=== PATIENT | male | born 1935 | race Caucasian/White ===

== ENCOUNTER 2018-09-02 09:49 | Outpatient (REF) | payer OTHER, SELFPAY ==
[2018-09-02 22:54] LABS: Iron 55 ug/dL (50-175); Total Iron Binding Capacity 274 ug/dL (250-450); Transferrin Sat 20 % (20-55)
[2018-09-02 23:07] LABS: COMMENT (LAB VIEW ONLY) 141.47 mg/dL
[2018-09-02 23:10] LABS: Anion Gap 10.6 mmol/L (3-11); BUN 30 mg/dL (7-18); CO2 24.4 mmol/L (21.0-32.0); CREATININE 1.67 mg/dL (0.70-1.30); Calcium 9.4 mg/dL (8.5-10.1); Chloride 103 mmol/L (98-107); Estimated GFR 39.68 (mL/min/1.73m2); Ferritin 173 ng/mL (8-388); Glucose 130 mg/dL (70-100); Potassium 5.6 mmol/L (3.5-5.1); Sodium 138 mmol/L (136-145)
== END 2018-09-02 10:09 ==
LOC: NCHCN 09:49
PROVIDERS: PCP Internal Medicine; Visit Provider Internal Medicine
DX: D50.0 Iron deficiency anemia secondary to blood loss (chronic) (principal); E11.9 Type 2 diabetes mellitus without complications; N18.9 Chronic kidney disease, unspecified
CPT/HCPCS: 80048; 82043; 82570; 82728; 83540; 83550

== ENCOUNTER → 2018-12-16 09:57 | Outpatient (BNVA) | payer MEDICARE, SELFPAY | PROVIDERS: PCP Internal Medicine; Referring Provider Internal Medicine; Visit Provider Nurse Practitioner Adult Health | DX: G56.01 Carpal tunnel syndrome, right upper limb (principal); R20.2 Paresthesia of skin; E11.22 Type 2 diabetes mellitus with diabetic chronic kidney disease; I12.9 Hypertensive chronic kidney disease with stage 1 through stage 4 chronic kidney disease, or unspecified chronic kidney disease; N18.9 Chronic kidney disease, unspecified | CPT/HCPCS: 95909; 99203; 99213 ==

== ENCOUNTER 2019-03-09 12:09 | Outpatient (REF) | payer MEDICARE, SELFPAY ==
[2019-03-09 22:33] LABS: Anion Gap 8.3 mmol/L (3-11); BUN 21 mg/dL (7-18); CO2 25.7 mmol/L (21.0-32.0); CREATININE 1.54 mg/dL (0.70-1.30); Calcium 8.7 mg/dL (8.5-10.1); Chloride 105 mmol/L (98-107); Estimated GFR 43.57 (mL/min/1.73m2); Glucose 166 mg/dL (70-100); Potassium 4.8 mmol/L (3.5-5.1); Sodium 139 mmol/L (136-145)
[2019-03-09 22:41] LABS: Abs Immature Grans 0.02 k/cumm (0.0-0.09); Absolute Basophil Count 0.06 k/cumm (0.0-0.2); Absolute Eosinophil Count 0.81 k/cumm (0.0-0.7); Absolute Lymphocyte Count 2.07 k/cumm (1.2-3.4); Absolute Monocyte Count 0.56 k/cumm (0.11-0.7); Absolute Neutrophil Count 4.45 k/cumm (1.2-6.7); Basophils % 0.8; Eosinophils % 10.2; HCT 37.7 % (40.0-50.0); HGB 12.1 g/dL (13.5-17.5); Immature Grans % 0.3; Mean Corp. HGB Concentration 32.1 g/dL (32.0-36.0); Mean Corpuscular Hemoglobin 27.2 pg (27.0-33.0); Mean Corpuscular Volume 84.7 fL (80-95); Mean Platelet Volume 10.9 fL (8.0-11.0); Neutrophils % 55.7; Platelet Count 192 x1000/uL (130-400); RBC 4.45 m/cumm (4.50-6.00); RBC Distribution Width 13.9 % (11.8-14.1); White Blood Cell Count 7.97 k/cumm (4.4-10.8)
== END 2019-03-09 12:29 ==
LOC: NCHCN 12:09
PROVIDERS: PCP Internal Medicine; Visit Provider Internal Medicine
DX: D50.0 Iron deficiency anemia secondary to blood loss (chronic) (principal); I10 Essential (primary) hypertension
CPT/HCPCS: 80048; 85025

== ENCOUNTER 2019-09-29 08:45 | Outpatient (REF) | payer MEDICARE, SELFPAY ==
[2019-09-29 22:29] LABS: COMMENT (LAB VIEW ONLY) 141.66 mg/dL; Microalb ug/mg Crea 35.5 ug/mg Cr
== END 2019-09-29 09:05 ==
LOC: NCHCN 08:45
PROVIDERS: PCP Internal Medicine; Visit Provider Internal Medicine
DX: E11.9 Type 2 diabetes mellitus without complications (principal)
CPT/HCPCS: 82043; 82570

== ENCOUNTER 2020-01-28 09:02 | Outpatient (REF) | payer MEDICARE, SELFPAY ==
[2020-01-28 20:09] LABS: HGB 13.6 g/dL (13.5-17.5); Mean Corp. HGB Concentration 33.2 g/dL (32.0-36.0); Mean Corpuscular Hemoglobin 27.6 pg (27.0-33.0); Mean Corpuscular Volume 83.3 fL (80-95); Mean Platelet Volume 11.1 fL (8.0-11.0); Platelet Count 208 x1000/uL (130-400); RBC 4.92 m/cumm (4.50-6.00); RBC Distribution Width 13.4 % (11.8-14.1); White Blood Cell Count 6.57 k/cumm (4.4-10.8)
[2020-01-28 20:29] LABS: ALT 27 U/L (16-63); AST 14 U/L (15-37); Albumin 4.3 g/dL (3.4-5.0); Alkaline Phosphatase 89 U/L (46-116); BUN 25 mg/dL (7-18); Bilirubin, Total 0.5 mg/dL (0.2-1.0); CREATININE 1.54 mg/dL (0.70-1.30); Calculated LDL 71 mg/dL (<100); Chloride 103 mmol/L (98-107); Cholesterol 149 mg/dL (<200); Estimated GFR 43.47 (mL/min/1.73m2); Glucose 132 mg/dL (74-106); HDL Cholesterol 43 mg/dL (40-60); Potassium 4.7 mmol/L (3.5-5.1); Sodium 141 mmol/L (136-145); Total Protein 7.6 g/dL (6.4-8.2); Triglyceride 177 mg/dL (<150)
== END 2020-01-28 09:22 ==
LOC: NCHCN 09:02
PROVIDERS: PCP Internal Medicine; Visit Provider Nurse Practitioner Family
DX: I10 Essential (primary) hypertension (principal); E11.9 Type 2 diabetes mellitus without complications; N18.9 Chronic kidney disease, unspecified
CPT/HCPCS: 80053; 80061; 85027

== ENCOUNTER 2020-07-03 19:44 | Outpatient (REF) | payer MEDICARE, SELFPAY ==
[2020-07-03 21:18] LABS: ALT 26 U/L (16-63); AST 15 U/L (15-37); Albumin 4.1 g/dL (3.4-5.0); Alkaline Phosphatase 78 U/L (46-116); BUN 26 mg/dL (7-18); Bilirubin, Direct 0.11 mg/dL (0.00-0.20); Bilirubin, Total 0.4 mg/dL (0.2-1.0); CREATININE 1.64 mg/dL (0.70-1.30); Estimated GFR 40.32 (mL/min/1.73m2); Total Protein 7.2 g/dL (6.4-8.2)
== END 2020-07-03 20:04 ==
LOC: NCHCN 19:44
PROVIDERS: PCP Internal Medicine; Visit Provider Internal Medicine
DX: E11.9 Type 2 diabetes mellitus without complications (principal); I10 Essential (primary) hypertension; N18.9 Chronic kidney disease, unspecified
CPT/HCPCS: 80076; 84520; 82565; 83036

== ENCOUNTER 2021-02-05 16:54 | Outpatient (REF) | payer MEDICARE, SELFPAY | END 2021-02-05 16:55 | disposition home or self-care (01) | LOC: NCHCN 16:54 | PROVIDERS: PCP Internal Medicine; Visit Provider Nurse Practitioner Family | DX: R30.0 Dysuria (principal) | CPT/HCPCS: 87077; 87086; 87186 ==

== ENCOUNTER 2021-04-12 10:39 | Outpatient (REF) | payer MEDICARE, SELFPAY ==
[2021-04-12 13:56] LABS: Anion Gap 6.2 mmol/L (3-11); BUN 24 mg/dL (7-18); CO2 27.8 mmol/L (21.0-32.0); CREATININE 1.6 mg/dL (0.70-1.30); Calcium 8.7 mg/dL (8.5-10.1); Chloride 107 mmol/L (98-107); Estimated GFR 41.49 (mL/min/1.73m2); Glucose 156 mg/dL (74-106); Potassium 5.8 mmol/L (3.5-5.1); Sodium 141 mmol/L (136-145)
[2021-04-12 14:39] LABS: COMMENT (LAB VIEW ONLY) 117.09 mg/dL
== END 2021-04-12 10:40 | disposition home or self-care (01) ==
LOC: NCHCN 10:39
PROVIDERS: PCP Internal Medicine; Visit Provider Internal Medicine
DX: E11.9 Type 2 diabetes mellitus without complications (principal); I10 Essential (primary) hypertension; N18.9 Chronic kidney disease, unspecified
CPT/HCPCS: 80048; 82043; 82570; 83036

== ENCOUNTER 2021-08-13 13:47 | Outpatient (REF) | payer MEDICARE, SELFPAY ==
[2021-08-13 14:51] LABS: Anion Gap 4.9 mmol/L (3-11); BUN 25 mg/dL (7-18); CO2 29.1 mmol/L (21.0-32.0); CREATININE 1.6 mg/dL (0.70-1.30); Chloride 107 mmol/L (98-107); Estimated GFR 41.39 (mL/min/1.73m2); Glucose 123 mg/dL (74-106); Potassium 5.4 mmol/L (3.5-5.1); Sodium 141 mmol/L (136-145)
[2021-08-13 16:46] LABS: Vitamin D 25 Total 38.2 ng/mL (30-100)
[2021-08-14 10:32] LABS: Parathyroid Hormone,Intact 114 pg/mL (19-88)
== END 2021-08-13 13:48 | disposition home or self-care (01) ==
LOC: NCHCN 13:47
PROVIDERS: PCP Internal Medicine; Visit Provider Internal Medicine
DX: N18.9 Chronic kidney disease, unspecified (principal)
CPT/HCPCS: 80048; 82306; 83970

== ENCOUNTER 2021-12-04 09:51 | Outpatient (REF) | payer MEDICARE, SELFPAY ==
[2021-12-04 16:07] LABS: Hemoglobin A1C 6.7 % (<5.7)
[2021-12-04 16:14] LABS: BUN 28 mg/dL (7-18); CREATININE 1.8 mg/dL (0.70-1.30); Calcium 8.8 mg/dL (8.5-10.1); Chloride 105 mmol/L (98-107); Estimated GFR 36.13 (mL/min/1.73m2); Glucose 121 mg/dL (74-106); Potassium 4.9 mmol/L (3.5-5.1); Sodium 141 mmol/L (136-145)
== END 2021-12-04 09:52 | disposition home or self-care (01) ==
LOC: NCHCN 09:51
PROVIDERS: PCP Internal Medicine; Visit Provider Internal Medicine
DX: I10 Essential (primary) hypertension (principal); N18.9 Chronic kidney disease, unspecified; E11.9 Type 2 diabetes mellitus without complications
CPT/HCPCS: 80048; 83036

== ENCOUNTER 2022-03-15 18:59 | Outpatient (REF) | payer MEDICARE, SELFPAY ==
[2022-03-15 15:17] LABS: COMMENT (LAB VIEW ONLY) 102.28 mg/dL; Microalb ug/mg Crea 96.6 ug/mg Cr
== END 2022-03-15 19:00 | disposition home or self-care (01) ==
LOC: NCHCN 18:59
PROVIDERS: PCP Internal Medicine; Visit Provider Internal Medicine
DX: E11.9 Type 2 diabetes mellitus without complications (principal)
CPT/HCPCS: 82043; 82570

== ENCOUNTER 2022-05-02 15:51 | Outpatient (REF) | payer MEDICARE, SELFPAY ==
[2022-05-02 16:11] LABS: HCT 41.1 % (40.0-50.0); HGB 13.5 g/dL (13.5-17.5); MCH 27.8 pg (27.0-33.0); MCHC 32.8 % (32.0-36.0); MCV 85 fL (80-95); MPV 11.7 fL (8.0-11.0); Platelet Count 206 10^3/uL (130-400); RBC 4.86 10^6/uL (4.36-5.78); RDW 13.2 % (11.8-14.1); WBC 7.09 10^3/uL (4.4-10.8)
[2022-05-02 17:32] LABS: Anion Gap 8.3 mmol/L (3-11); BUN 30 mg/dL (7-18); CO2 26.7 mmol/L (21.0-32.0); CREATININE 1.7 mg/dL (0.70-1.30); Calcium 8.8 mg/dL (8.5-10.1); Chloride 102 mmol/L (98-107); Estimated GFR 38.59 (mL/min/1.73m2); Glucose 113 mg/dL (74-106); Potassium 5.3 mmol/L (3.5-5.1); Sodium 137 mmol/L (136-145)
[2022-05-06 10:52] LABS: Parathyroid Hormone,Intact 78 pg/mL (19-88)
== END 2022-05-02 15:52 | disposition home or self-care (01) ==
LOC: NCHCN 15:51
PROVIDERS: PCP Internal Medicine; Visit Provider Internal Medicine
DX: I10 Essential (primary) hypertension (principal); N18.9 Chronic kidney disease, unspecified; I48.0 Paroxysmal atrial fibrillation
CPT/HCPCS: 80048; 85027; 83970

== ENCOUNTER 2022-07-25 16:49 | Outpatient (REF) | payer MEDICARE, SELFPAY ==
[2022-07-25 21:42] LABS: Potassium 5.1 mmol/L (3.5-5.1)
== END 2022-07-25 16:50 | disposition home or self-care (01) ==
LOC: NCHCN 16:49
PROVIDERS: PCP Internal Medicine; Visit Provider Internal Medicine
DX: E87.5 Hyperkalemia (principal)
CPT/HCPCS: 84132

== ENCOUNTER 2023-02-27 12:25 | Outpatient (REF) | payer MEDICARE, SELFPAY ==
[2023-02-27 14:38] LABS: HCT 41.1 % (40.0-50.0); HGB 13.2 g/dL (13.5-17.5); MCH 27.1 pg (27.0-33.0); MCHC 32.1 % (32.0-36.0); MCV 84 fL (80-95); MPV 10.9 fL (8.0-11.0); Platelet Count 207 10^3/uL (130-400); RBC 4.87 10^6/uL (4.36-5.78); RDW 13.2 % (11.8-14.1); RDW-SD 41.1 fL; WBC 7.67 10^3/uL (4.4-10.8)
[2023-02-27 16:44] LABS: Anion Gap 8.8 mmol/L (3-11); BUN 27 mg/dL (7-18); CO2 26.2 mmol/L (21.0-32.0); CREATININE 1.9 mg/dL (0.70-1.30); Calcium 8.8 mg/dL (8.5-10.1); Chloride 105 mmol/L (98-107); Estimated GFR 34.14 (mL/min/1.73m2); Glucose 170 mg/dL (74-106); Potassium 5.2 mmol/L (3.5-5.1); Sodium 140 mmol/L (136-145)
[2023-02-27 16:50] LABS: COMMENT (LAB VIEW ONLY) 118.69 mg/dL
[2023-02-27 16:52] LABS: Microalb ug/mg Crea 158.7 ug/mg Cr
== END 2023-02-27 12:26 | disposition home or self-care (01) ==
LOC: NCHCN 12:25
PROVIDERS: PCP Internal Medicine; Visit Provider Internal Medicine
DX: N18.9 Chronic kidney disease, unspecified (principal); E11.9 Type 2 diabetes mellitus without complications
CPT/HCPCS: 80048; 85027; 82043; 82570

== ENCOUNTER 2023-08-25 20:51 | Outpatient (REF) | payer MEDICARE, SELFPAY ==
[2023-08-25 16:25] LABS: Anion Gap 10.5 mmol/L (3-11); BUN 26 mg/dL (7-18); CO2 24.5 mmol/L (21.0-32.0); CREATININE 1.7 mg/dL (0.70-1.30); Calcium 9.4 mg/dL (8.5-10.1); Chloride 104 mmol/L (98-107); Estimated GFR 38.78 (mL/min/1.73m2); Glucose 206 mg/dL (74-106); Potassium 4.3 mmol/L (3.5-5.1); Sodium 139 mmol/L (136-145)
[2023-08-25 17:18] LABS: Vitamin D 25 Total 47.9 ng/mL (30-100)
[2023-08-25 23:30] LABS: Parathyroid Hormone,Intact 101 pg/mL (19-88)
== END 2023-08-25 20:52 | disposition home or self-care (01) ==
LOC: NCHCN 20:51
PROVIDERS: PCP Internal Medicine; Visit Provider Internal Medicine
DX: E11.9 Type 2 diabetes mellitus without complications (principal); I10 Essential (primary) hypertension; I48.0 Paroxysmal atrial fibrillation; N18.9 Chronic kidney disease, unspecified
CPT/HCPCS: 80048; 82306; 83036; 83970

== ENCOUNTER 2023-12-05 12:22 | Outpatient (REF) | payer MEDICARE, SELFPAY ==
[2023-12-05 15:03] LABS: HCT 38.3 % (40.0-50.0); HGB 12.4 g/dL (13.5-17.5); MCH 27.3 pg (27.0-33.0); MCHC 32.4 % (32.0-36.0); MCV 84 fL (80-95); MPV 11.2 fL (8.0-11.0); Platelet Count 205 10^3/uL (130-400); RBC 4.55 10^6/uL (4.36-5.78); RDW 13.2 % (11.8-14.1); RDW-SD 40.8 fL; WBC 7.37 10^3/uL (4.4-10.8)
[2023-12-05 15:13] LABS: BUN 29 mg/dL (7-18); CREATININE 1.7 mg/dL (0.70-1.30); Calcium 9.1 mg/dL (8.5-10.1); Chloride 105 mmol/L (98-107); Estimated GFR 38.78 (mL/min/1.73m2); Glucose 218 mg/dL (74-106); Potassium 4.6 mmol/L (3.5-5.1); Sodium 142 mmol/L (136-145)
[2023-12-05 15:25] LABS: Hemoglobin A1C 6.8 % (<5.7)
== END 2023-12-05 12:23 | disposition home or self-care (01) ==
LOC: NCHCN 12:22
PROVIDERS: PCP Internal Medicine; Visit Provider Internal Medicine
DX: N18.9 Chronic kidney disease, unspecified (principal)
CPT/HCPCS: 80048; 85027; 83036

== ENCOUNTER 2024-02-20 14:54 | Outpatient (REF) | payer MEDICARE, SELFPAY ==
[2024-02-20 22:12] LABS: COMMENT (LAB VIEW ONLY) 196.71 mg/dL
== END 2024-02-20 14:55 | disposition home or self-care (01) ==
LOC: NCHCN 14:54
PROVIDERS: PCP Internal Medicine; Visit Provider Internal Medicine
DX: E11.9 Type 2 diabetes mellitus without complications (principal)
CPT/HCPCS: 82043; 82570

== ENCOUNTER 2024-06-16 20:05 | Outpatient (REF) | payer MEDICARE, SELFPAY ==
[2024-06-16 21:31] LABS: HCT 40.9 % (40.0-50.0); HGB 12.7 g/dL (13.5-17.5); MCH 27.6 pg (27.0-33.0); MCHC 31.1 % (32.0-36.0); MCV 89 fL (80-95); MPV 11.5 fL (8.0-11.0); Platelet Count 190 10^3/uL (130-400); RDW 13.5 % (11.8-14.1); RDW-SD 43.8 fL; WBC 7.67 10^3/uL (4.4-10.8)
[2024-06-16 22:43] LABS: BUN 31 mg/dL (7-18); CREATININE 1.8 mg/dL (0.70-1.30); Calcium 9.2 mg/dL (8.5-10.1); Chloride 104 mmol/L (98-107); Estimated GFR 35.98 (mL/min/1.73m2); Glucose 201 mg/dL (74-106); Potassium 4.8 mmol/L (3.5-5.1); Sodium 139 mmol/L (136-145)
[2024-06-17 11:54] LABS: Hemoglobin A1C 6.6 % (<5.7)
== END 2024-06-16 20:06 | disposition home or self-care (01) ==
LOC: NCHCN 20:05
PROVIDERS: PCP Internal Medicine; Visit Provider Internal Medicine
DX: I10 Essential (primary) hypertension (principal); E11.9 Type 2 diabetes mellitus without complications; K27.9 Peptic ulcer, site unspecified, unspecified as acute or chronic, without hemorrhage or perforation
CPT/HCPCS: 80048; 85027; 83036

== ENCOUNTER 2024-09-17 08:40 | Outpatient (REF) | payer MEDICARE, SELFPAY ==
[2024-09-17 15:21] LABS: Hemoglobin A1C 6.5 % (<5.7)
[2024-09-17 16:57] LABS: ALT 27 U/L (16-63); AST 8 U/L (15-37); Alkaline Phosphatase 84 U/L (46-116); Anion Gap 12.2 mmol/L (3-11); BUN 36 mg/dL (7-18); Bilirubin, Total 0.41 mg/dL (0.2-1.0); CO2 23.8 mmol/L (21.0-32.0); CREATININE 2.2 mg/dL (0.70-1.30); Calcium 9.2 mg/dL (8.5-10.1); Calculated LDL 55 mg/dL (<100); Chloride 107 mmol/L (98-107); Cholesterol 133 mg/dL (<200); Estimated GFR 28.28 (mL/min/1.73m2); Glucose 169 mg/dL (74-106); HDL Cholesterol 52 mg/dL (40-60); Potassium 4.9 mmol/L (3.5-5.1); Sodium 143 mmol/L (136-145); Total Protein 7.6 g/dL (6.4-8.2); Triglyceride 131 mg/dL (<150)
[2024-09-17 17:13] LABS: PHOSPHORUS 3.1 mg/dL (2.6-4.7)
[2024-09-17 23:19] LABS: Parathyroid Hormone,Intact 115 pg/mL (19-88)
== END 2024-09-17 08:41 | disposition home or self-care (01) ==
LOC: NCHCN 08:40
PROVIDERS: PCP Internal Medicine; Visit Provider Internal Medicine
DX: N18.9 Chronic kidney disease, unspecified (principal)
CPT/HCPCS: 80053; 80061; 83036; 83970; 84100

== ENCOUNTER 2024-12-20 17:21 | Outpatient (REF) | payer MEDICARE, SELFPAY ==
[2024-12-20 15:11] LABS: Anion Gap 7.5 mmol/L (3-11); BUN 34 mg/dL (7-18); CO2 28.5 mmol/L (21.0-32.0); CREATININE 1.9 mg/dL (0.70-1.30); Calcium 9.1 mg/dL (8.5-10.1); Chloride 106 mmol/L (98-107); Estimated GFR 33.72 (mL/min/1.73m2); Glucose 142 mg/dL (74-106); Hemoglobin A1C 6.7 % (<5.7); Potassium 5.1 mmol/L (3.5-5.1); Sodium 142 mmol/L (136-145)
== END 2024-12-20 17:22 | disposition home or self-care (01) ==
LOC: NCHCN 17:21
PROVIDERS: PCP Internal Medicine; Visit Provider Internal Medicine
DX: E11.9 Type 2 diabetes mellitus without complications (principal)
CPT/HCPCS: 80048; 83036

== ENCOUNTER 2025-03-28 13:11 | Outpatient (REF) | payer MEDICARE, SELFPAY ==
[2025-03-28 16:22] LABS: COMMENT (LAB VIEW ONLY) 58.41 mg/dL
[2025-03-28 16:30] LABS: Microalb ug/mg Crea 156.7 ug/mg Cr
== END 2025-03-28 13:12 | disposition home or self-care (01) ==
LOC: NCHCN 13:11
PROVIDERS: PCP Internal Medicine; Visit Provider Internal Medicine
DX: E11.9 Type 2 diabetes mellitus without complications (principal)
CPT/HCPCS: 82043; 82570

== ENCOUNTER 2025-07-21 15:03 | Outpatient (REF) | payer MEDICARE, SELFPAY ==
[2025-07-21 15:58] LABS: HCT 40.1 % (40.0-50.0); HGB 12.8 g/dL (13.5-17.5); MCH 27.5 pg (27.0-33.0); MCHC 31.9 % (32.0-36.0); MCV 86 fL (80-95); MPV 11.3 fL (8.0-11.0); Platelet Count 191 10^3/uL (130-400); RBC 4.65 10^6/uL (4.36-5.78); RDW 13.3 % (11.8-14.1); RDW-SD 41.7 fL; WBC 8.24 10^3/uL (4.4-10.8)
[2025-07-21 16:27] LABS: ALT 22 U/L (16-63); AST 17 U/L (15-37); Albumin 3.9 g/dL (3.4-5.0); Alkaline Phosphatase 93 U/L (46-116); Anion Gap 6.5 mmol/L (3-11); BUN 35 mg/dL (7-18); Bilirubin, Total 0.4 mg/dL (0.2-1.0); CO2 27.5 mmol/L (21.0-32.0); Calcium 9.2 mg/dL (8.5-10.1); Chloride 105 mmol/L (98-107); Estimated GFR 35.76 (mL/min/1.73m2); Glucose 138 mg/dL (74-106); Potassium 5.4 mmol/L (3.5-5.1); Sodium 139 mmol/L (136-145); Total Protein 7.1 g/dL (6.4-8.2)
[2025-07-21 17:06] LABS: Hemoglobin A1C 6.6 % (<5.7)
== END 2025-07-21 15:04 | disposition home or self-care (01) ==
LOC: NCHCN 15:03
PROVIDERS: PCP Internal Medicine; Visit Provider Internal Medicine
DX: E11.9 Type 2 diabetes mellitus without complications (principal)
CPT/HCPCS: 80053; 85027; 83036